=== PATIENT | male | born 1965 | race Caucasian/White ===

== ENCOUNTER 2017-07-12 09:28 | Day surgery (SDC) | payer OTHER ==
[~2017-07-12 09:28] MED LIST: ESZOPICLONE 2 MG TAB PO ONE; LIDOCAINE HCL 1% MPF SOL ONE; PROPOFOL 500 MG/50 ML EMU IV ONE
[2017-07-12 10:58] VITALS: BP 121/92; PULSE 73; RESP 18; TEMP 97.7; O2SAT 97
== END 2017-07-12 11:20 | disposition home or self-care (01) | DRG 951 ==
LOC: SURG 09:28
PROVIDERS: ATTEND Surgery
DX: Z12.11 Encounter for screening for malignant neoplasm of colon (principal); K57.30 Diverticulosis of large intestine without perforation or abscess without bleeding
CPT/HCPCS: J2001; J2704